=== PATIENT | male | born 1950 | race Caucasian/White ===

== ENCOUNTER 2020-09-01 20:33 | Inpatient (IN) | payer OTHER, SELFPAY ==
[~2020-09-01] VITALS: Ht 172.7 cm; Wt 124.7 kg
[2020-09-01 20:40] VITALS: BP_SYST 156
[2020-09-01] MEDS ORDERED: LISI20TA30 PO (20:51)
[2020-09-01] MEDS ORDERED: NACL 0.9% 1,000 ML IV ONE (21:15)
[2020-09-01] MEDS ORDERED: ONDANSETRON HCL 4 MG/2 ML VIAL IVP ONE ×2 (21:15→23:30)
[2020-09-01 21:40] LABS: BASOPHILS # (AUTO) 0.1 K/uL (0.0-0.2); BASOPHILS % (AUTO) 0.8 % (0.0-2.0); EOSINOPHILS # (AUTO) 0.2 K/uL (0.0-0.4); EOSINOPHILS % (AUTO) 2.5 % (0.0-4.0); HEMATOCRIT 46.3 % (36-54); HEMOGLOBIN 15.5 g/dL (14.0-18.0); LYMPHOCYTES # (AUTO) 1.4 K/uL (1.0-5.5); LYMPHOCYTES % (AUTO) 16.4 % (20.5-51.5); MEAN CORPUSCULAR HEMOGLOBIN 32 pg (27-31); MEAN CORPUSCULAR HGB CONC 34 % (32-36); MEAN CORPUSCULAR VOLUME 96 fL (79.0-98.0); MONOCYTES # (AUTO) 0.7 K/uL (0.0-1.0); MONOCYTES % (AUTO) 8.1 % (1.7-9.3); NEUTROPHILS # (AUTO) 6.4 K/uL (1.8-7.7); NEUTROPHILS % (AUTO) 72.2 % (40.0-70.0); PLATELET COUNT (AUTO) 234 K/uL (130-430); RED BLOOD CELL COUNT(AUTO) 4.84 MIL/uL (4.2-6.2); RED CELL DISTRIBUTION WIDTH 13.5 % (9.0-15.0); WHITE BLOOD COUNT (AUTO) 8.8 K/uL (4.8-10.8)
[2020-09-01 22:06] LABS: ANION GAP 12 (5-15); CHLORIDE 102 mmol/L (98-107); CREATININE 1.08 mg/dL (0.55-1.30); GLUCOSE 111 mg/dL (70-99); POTASSIUM 4.1 mmol/L (3.5-5.1); SODIUM SERUM 140 mmol/L (136-145); UREA NITROGEN, BLOOD 14 mg/dL (8-21)
[2020-09-01 22:12] LABS: ALANINE AMINOTRANSFERASE 608 U/L (12-78); ALBUMIN 3.6 g/dL (3.4-4.8); ASPARTATE AMINOTRANSFERASE 515 U/L (10-37); LIPASE 138 U/L (73-393); TOTAL BILIRUBIN 5.8 mg/dL (0.0-1.0)
[2020-09-01] MEDS ORDERED: KETOROLAC TROMETHAMINE 30 MG VIAL IVP ONE (22:15)
[2020-09-01] MEDS ORDERED: fentaNYL CITRATE/PF 100 MCG/2 ML AMP IVP ONE (22:15)
[2020-09-01] MEDS ORDERED: ONDANSETRON HCL 4 MG/2 ML VIAL ONE (23:34)
[2020-09-01] MEDS ORDERED: PIPERACILLIN/TAZOBACTAM 3.375 GM/VIAL (ZOSYN) IV ONE (23:57)
[2020-09-02] VITALS (7 sets, daily range): BP systolic 109–144
[2020-09-02] MEDS ORDERED: PIPERACILLIN/TAZO 3.375 GM in NS 50 ML IV ONE ×2
[2020-09-02] MEDS ORDERED: MORPHINE 4 MG INJ. 4 MG/ML VIAL IVP ONE (00:45)
[2020-09-02] MEDS ORDERED: MORPHINE 4 MG INJ. 4 MG/ML VIAL IVP PRN (04:45)
[2020-09-02] MEDS ORDERED: NALOXONE HCL 0.4 MG/ML AMP (NARCAN) IVP PRN (04:45)
[2020-09-02] MEDS ORDERED: ALBUTEROL SULFATE 0.083% 2.5 MG/3 ML VIAL.NEB INH PRN (04:45)
[2020-09-02] MEDS ORDERED: PIPERACILLIN/TAZOBACTAM 3.375 GM/VIAL (ZOSYN) IV ONE (05:23)
[2020-09-02] MEDS: NACL 0.9% 1,000 ML IV SCH ×2 (05:44→15:17)
[2020-09-02] MEDS ORDERED: PIPERACILLIN/TAZO 3.375/DEX-IS 50 ML IV SCH (06:00)
[2020-09-02 07:44] LABS: BASOPHILS # (AUTO) 0.1 K/uL (0.0-0.2); BASOPHILS % (AUTO) 0.8 % (0.0-2.0); EOSINOPHILS # (AUTO) 0.1 K/uL (0.0-0.4); EOSINOPHILS % (AUTO) 1.3 % (0.0-4.0); HEMATOCRIT 45.9 % (36-54); HEMOGLOBIN 15.3 g/dL (14.0-18.0); LYMPHOCYTES # (AUTO) 1.3 K/uL (1.0-5.5); LYMPHOCYTES % (AUTO) 15.9 % (20.5-51.5); MEAN CORPUSCULAR HEMOGLOBIN 32 pg (27-31); MEAN CORPUSCULAR HGB CONC 33 % (32-36); MEAN CORPUSCULAR VOLUME 96 fL (79.0-98.0); MONOCYTES # (AUTO) 0.4 K/uL (0.0-1.0); MONOCYTES % (AUTO) 4.7 % (1.7-9.3); NEUTROPHILS # (AUTO) 6.2 K/uL (1.8-7.7); NEUTROPHILS % (AUTO) 77.3 % (40.0-70.0); PLATELET COUNT (AUTO) 221 K/uL (130-430); RED BLOOD CELL COUNT(AUTO) 4.79 MIL/uL (4.2-6.2); RED CELL DISTRIBUTION WIDTH 13.3 % (9.0-15.0)
[2020-09-02] MEDS: ONDANSETRON HCL 4 MG/2 ML VIAL IVP PRN (07:48)
[2020-09-02 08:04] LABS: INR 1.2 (0.80-1.20)
[2020-09-02 08:05] LABS: ALANINE AMINOTRANSFERASE 525 U/L (12-78); ALBUMIN 3.3 g/dL (3.4-4.8); ANION GAP 12 (5-15); ASPARTATE AMINOTRANSFERASE 352 U/L (10-37); CALCIUM 8.6 mg/dL (8.4-11.0); CHLORIDE 105 mmol/L (98-107); CREATININE 1.15 mg/dL (0.55-1.30); GLUCOSE 117 mg/dL (70-99); POTASSIUM 4.3 mmol/L (3.5-5.1); SODIUM SERUM 141 mmol/L (136-145); UREA NITROGEN, BLOOD 17 mg/dL (8-21)
[2020-09-02] MEDS: METOCLOPRAMIDE HCL 10 MG/2 ML VIAL IVP PRN ×2 (10:24→18:03)
[2020-09-02] MEDS ORDERED: NS IRRIG SOLN 1000 ML IR ONE (14:10)
[2020-09-02] MEDS ORDERED: ROCURONIUM BROMIDE 10 MG/ML (ZEMURON) IV ONE (14:10)
[2020-09-02] MEDS ORDERED: fentaNYL CITRATE/PF 100 MCG/2 ML AMP IVP ONE (14:10)
[2020-09-02] MEDS ORDERED: BUPIVACAINE /PF 0.25% 30 ML VIAL INJ ONE (14:10)
[2020-09-02] MEDS ORDERED: MIDAZOLAM HCL 5 MG/5 ML VIAL IVP ONE (14:10)
[2020-09-02] MEDS ORDERED: NS 1000 ML IV.SOLN IV ONE (14:10)
[2020-09-02] MEDS ORDERED: LABETALOL 100 MG/ 20ML VIAL IVP ONE (14:10)
[2020-09-02] MEDS ORDERED: LIDOCAINE/EPI 1% 1:100000 20 ML VIAL INJ ONE (14:10)
[2020-09-02] MEDS ORDERED: DEXAMETHASONE SOD PHOSPHATE 4 MG/ML VIAL IVP ONE (14:10)
[2020-09-02] MEDS ORDERED: LR 500 ML IV.SOLN IV ONE (14:10)
[2020-09-02] MEDS ORDERED: SUCCINYLCHOLINE CHLORIDE 20 MG/ML(QUELICIN) IVP ONE (14:10)
[2020-09-02] MEDS ORDERED: SEVOFLURANE 15 MIN GAS INH ONE (14:10)
[2020-09-02] MEDS ORDERED: PROPOFOL 200MG/ 20ML VIAL (DIPRIVAN) IV ONE (14:10)
[2020-09-02] MEDS ORDERED: hydrALAZINE HCL 20 MG/ML VIAL IVP ONE (14:10)
[2020-09-03] VITALS (10 sets, daily range): BP systolic 97–134
[2020-09-03] MEDS: NACL 0.9% 1,000 ML IV SCH ×2 (00:53→11:05)
[2020-09-03 07:11] LABS: BASOPHILS # (AUTO) 0.1 K/uL (0.0-0.2); BASOPHILS % (AUTO) 0.6 % (0.0-2.0); EOSINOPHILS # (AUTO) 0.2 K/uL (0.0-0.4); EOSINOPHILS % (AUTO) 2.9 % (0.0-4.0); HEMATOCRIT 42.1 % (36-54); HEMOGLOBIN 14.1 g/dL (14.0-18.0); LYMPHOCYTES # (AUTO) 1.7 K/uL (1.0-5.5); LYMPHOCYTES % (AUTO) 20.8 % (20.5-51.5); MEAN CORPUSCULAR HEMOGLOBIN 32 pg (27-31); MEAN CORPUSCULAR HGB CONC 33 % (32-36); MEAN CORPUSCULAR VOLUME 97 fL (79.0-98.0); MONOCYTES # (AUTO) 0.7 K/uL (0.0-1.0); MONOCYTES % (AUTO) 8.6 % (1.7-9.3); NEUTROPHILS # (AUTO) 5.6 K/uL (1.8-7.7); NEUTROPHILS % (AUTO) 67.1 % (40.0-70.0); PLATELET COUNT (AUTO) 198 K/uL (130-430); RED BLOOD CELL COUNT(AUTO) 4.36 MIL/uL (4.2-6.2); RED CELL DISTRIBUTION WIDTH 13.3 % (9.0-15.0); WHITE BLOOD COUNT (AUTO) 8.4 K/uL (4.8-10.8)
[2020-09-03 07:21] LABS: ALANINE AMINOTRANSFERASE 361 U/L (12-78); ALBUMIN 2.8 g/dL (3.4-4.8); ANION GAP 10 (5-15); ASPARTATE AMINOTRANSFERASE 170 U/L (10-37); CALCIUM 8.3 mg/dL (8.4-11.0); CHLORIDE 109 mmol/L (98-107); GLUCOSE 93 mg/dL (70-99); POTASSIUM 3.9 mmol/L (3.5-5.1); SODIUM SERUM 143 mmol/L (136-145); UREA NITROGEN, BLOOD 18 mg/dL (8-21)
[2020-09-03 08:06] LABS: HEPATITIS A AB, IgM Negative (Negative); HEPATITIS B CORE AB, IgM Negative (Negative); HEPATITIS B SURFACE AG Negative (Negative)
[2020-09-03] MEDS: ONDANSETRON HCL 4 MG/2 ML VIAL IVP PRN ×2 (11:06→21:30)
[2020-09-03] MEDS ORDERED: ONDANSETRON HCL 4 MG/2 ML VIAL IVP PRN (15:15)
[2020-09-03] MEDS ORDERED: METOCLOPRAMIDE HCL 10 MG/2 ML VIAL IVP PRN (15:15)
[2020-09-03] MEDS ORDERED: fentaNYL CITRATE/PF 100 MCG/2 ML AMP IVP PRN ×2 (15:15)
[2020-09-03] MEDS ORDERED: HYDROcodone/ACETAMIN 5-325 MG TAB (NORCO/ VICODIN) PO PRN (15:45)
[2020-09-03] MEDS ORDERED: HYDROmorphone 1 MG/ML INJ. CARTRIDGE IVP PRN (15:45)
[2020-09-03] MEDS ORDERED: ALBUTEROL SULFATE 0.083% 2.5 MG/3 ML VIAL.NEB INH ONE ×2 (16:28→16:45)
[2020-09-03] MEDS ORDERED: MIDAZOLAM HCL 2 MG/2 ML VIAL (VERSED) ONE (16:35)
[2020-09-03] MEDS ORDERED: MIDAZOLAM HCL 2 MG/2 ML VIAL (VERSED) IVP ONE (16:45)
[2020-09-03] MEDS ORDERED: ONDANSETRON HCL 4 MG/2 ML VIAL ONE (21:15)
[2020-09-03] MEDS: MORPHINE 2 MG/ML INJ. SYRINGE IVP PRN (21:31)
[2020-09-04] VITALS (14 sets, daily range): BP systolic 118–163
[2020-09-04] MEDS ORDERED: ONDANSETRON HCL 4 MG/2 ML VIAL ONE (06:20)
[2020-09-04] MEDS: ONDANSETRON HCL 4 MG/2 ML VIAL IVP PRN (06:21)
[2020-09-04] MEDS: MORPHINE 2 MG/ML INJ. SYRINGE IVP PRN (06:22)
[2020-09-04 06:57] LABS: BASOPHILS % (AUTO) 0.1 % (0.0-2.0); HEMATOCRIT 43.3 % (36-54); HEMOGLOBIN 14.1 g/dL (14.0-18.0); LYMPHOCYTES # (AUTO) 0.9 K/uL (1.0-5.5); LYMPHOCYTES % (AUTO) 6.5 % (20.5-51.5); MEAN CORPUSCULAR HEMOGLOBIN 32 pg (27-31); MEAN CORPUSCULAR HGB CONC 33 % (32-36); MEAN CORPUSCULAR VOLUME 96 fL (79.0-98.0); MONOCYTES # (AUTO) 0.4 K/uL (0.0-1.0); MONOCYTES % (AUTO) 3.4 % (1.7-9.3); NEUTROPHILS # (AUTO) 11.9 K/uL (1.8-7.7); PLATELET COUNT (AUTO) 212 K/uL (130-430); RED BLOOD CELL COUNT(AUTO) 4.49 MIL/uL (4.2-6.2); RED CELL DISTRIBUTION WIDTH 13.6 % (9.0-15.0); WHITE BLOOD COUNT (AUTO) 13.2 K/uL (4.8-10.8)
[2020-09-04 06:59] LABS: ALANINE AMINOTRANSFERASE 267 U/L (12-78); ALBUMIN 2.9 g/dL (3.4-4.8); ANION GAP 10 (5-15); ASPARTATE AMINOTRANSFERASE 103 U/L (10-37); CALCIUM 8.3 mg/dL (8.4-11.0); CHLORIDE 106 mmol/L (98-107); GLUCOSE 128 mg/dL (70-99); POTASSIUM 4.2 mmol/L (3.5-5.1); SODIUM SERUM 141 mmol/L (136-145); TOTAL BILIRUBIN 1.3 mg/dL (0.0-1.0); UREA NITROGEN, BLOOD 18 mg/dL (8-21)
[2020-09-04] MEDS: NACL 0.9% 1,000 ML IV SCH (07:24)
== END 2020-09-04 14:40 | disposition home or self-care (01) | DRG 418 ==
LOC: SED 20:33 → SMU 09-02 00:50 → STU 09-03 17:16 → SIC 09-03 17:44 → SMU 09-04 10:53
PROVIDERS: ADMIT Internal Medicine Hospice and Palliative Medicine; ATTEND Internal Medicine Hospice and Palliative Medicine
PROC: 5A09357 Assistance with Respiratory Ventilation, Less than 24 Consecutive Hours, Continuous Positive Airway Pressure (ICD-10-PCS; 2020-09-03)
PROC: 0FT44ZZ Resection of Gallbladder, Percutaneous Endoscopic Approach (ICD-10-PCS; principal; 2020-09-03 14:10)
DX: K80.64 Calculus of gallbladder and bile duct with chronic cholecystitis without obstruction (principal); R17 Unspecified jaundice; Z68.41 Body mass index [BMI] 40.0-44.9, adult; E66.01 Morbid (severe) obesity due to excess calories; I10 Essential (primary) hypertension; Z20.822 Contact with and (suspected) exposure to COVID-19; Z87.442 Personal history of urinary calculi
CPT/HCPCS: 36415; 71045; 74181; 76376; 76705; 80053; 80074; 83690; 84484; 85025; 85610-TC; 87070-TC; 87205-TC; 88304; 93005; 94660; 96361; 96365; 96374; 96375; 96376; 99285; C1727; J0330; J0360; J1100; J1885; J2250; J2270; J2405; J2543; J2704; J2765; J3010; J3465; J3490; J7030; J7120; J7613